=== PATIENT | female | born 1980 | race Caucasian/White ===

== ENCOUNTER 2020-01-27 20:25 | Emergency (ER) | payer MEDICAID ==
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
[2020-01-27] MEDS ORDERED: NORCO 5/325 MG PO ONE (20:49)
[2020-01-27] MEDS ORDERED: NORCO 5/325 MG ONE (20:51)
[2020-01-27 21:04] VITALS: BP 104/62; PULSE 107; O2SAT 100
== END 2020-01-27 21:05 | disposition home or self-care (01) ==
LOC: ED 20:25
DX: T22.112A Burn of first degree of left forearm, initial encounter (principal); T22.111A Burn of first degree of right forearm, initial encounter; T24.101A Burn of first degree of unspecified site of right lower limb, except ankle and foot, initial encounter; X01.0XXA Exposure to flames in uncontrolled fire, not in building or structure, initial encounter
CPT/HCPCS: 99283; A9270-GY